=== PATIENT | female | born 1960 | race Caucasian/White ===

== ENCOUNTER → 2021-11-13 | Outpatient (CLI) | payer BC ==
--- NOTE | 2021-11-14 08:09 | MR ---
EXAMINATION TYPE: MR brain wo/w con DATE OF EXAM: 11/13/2021 COMPARISON: NONE HISTORY: ATYPICAL FACIAL PAIN - SAENZ, Sinus pressure, pain and dizziness - Hx of sinus surgery in Apr 09 TECHNIQUE: Multiplanar, multisequence images of the brain and brainstem is performed without and with IV contras t, utilizing 5ml intravenous Gadavist . FINDINGS: Diffusion weighted images demonstrate no evidence of a recent infarct or other diffusion ab normality. There is mild ventricular and sulcal prominence. There is occasional small scattered foci of T2 hyperintensity seen throughout the white matter bilaterally. Lesions nonspecific in appearance and distribution. Midline structures demonstrate normal morphology. The craniocervical junction appears within normal limits. Post contrast images demonstrate no abnormal enhancement. The dural venous sinuses appear pa tent. Mild to moderate mucosal thickening involving anterior ethmoid sinuses bilaterally otherwise pa ranasal sinuses are clear. Mild patchy fluid inferior mastoid air cells bilaterally. Globes are intac t bilaterally. IMPRESSION: 1. Residual mild anterior chronic ethmoid sinus disease. No acute sinusitis currently. 2. Some increased fluid signal inferior bilateral mastoid air cells could reflect product of mastoidi tis and account for symptoms of dizziness, correlate clinically. 3. There is mild diffuse age-related cerebral atrophy and chronic small vessel ischemic changes prese nt. No suspicious enhancement is seen.
== END | disposition home or self-care (01) ==
LOC: RADMRIMAIN 14:15
PROVIDERS: ATTEND Otolaryngology
DX: J32.9 Chronic sinusitis, unspecified (principal); G31.1 Senile degeneration of brain, not elsewhere classified; I67.82 Cerebral ischemia
CPT/HCPCS: 70553; A9585